=== PATIENT | female | born 1995 | race Caucasian/White ===

== ENCOUNTER 2024-09-21 12:55 | Emergency (ER) | payer OTHER ==
[2024-09-21 13:10] VITALS: TEMP 98.2
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
[2024-09-21 17:25] VITALS: BP 122/60; PULSE 84; RESP 18
== END 2024-09-21 17:25 | disposition home or self-care (01) ==
LOC: EC 12:55
DX: M54.2 Cervicalgia (principal); F17.200 Nicotine dependence, unspecified, uncomplicated; V53.5XXA Driver of pick-up truck or van injured in collision with car, pick-up truck or van in traffic accident, initial encounter
CPT/HCPCS: 70450; 72100; 72125; 73502; 81025; 99284